=== PATIENT | female | born 1995 | race Caucasian/White ===

== ENCOUNTER 2021-05-11 11:51 | Emergency (ER) | payer OTHER, SELFPAY ==
[2021-05-11 12:02] VITALS: BP 120/66; PULSE 71; RESP 16; TEMP 36.7; O2SAT 100
--- NOTE | 2021-05-11 12:47 | ED.ABDPAIN ---
HPI - Abdominal Pain General Chief Complaint: Abdominal Pain Stated Complaint: Abdominal Pain Time Seen by Provider: 05/11/21 12:45 Source: patient, RN notes reviewed and old records reviewed Mode of arrival: ambulatory Limitations: no limitations Related Data Allergies Allergy/AdvReac Type Severity Reaction Status Date / Time No Known Allergies Allergy Unverified 04/18/18 12:58 Review of Systems Review of Systems: CONSTITUTIONAL: Denies fever, chills, or sweats. EYES: Denies visual changes, redness, or discharge. ENT: Denies rhinorrhea, congestion, sore throat, or otalgia. CARDIOVASCULAR: Denies chest pain, palpitations, or edema. RESPIRATORY: Denies cough or dyspnea. GASTROINTESTINAL: Denies abdominal pain, nausea, vomiting, or diarrhea. GENITOURINARY: Denies dysuria or hematuria. SKIN: Denies rash or itching. MUSCULOSKELETAL: Denies back pain, joint pain, or myalgia. NEUROLOGIC: Denies headache, numbness, or weakness. PSYCHIATRIC: Denies anxiety or depression. All systems reviewed & are unremarkable except as noted in HPI and below PMFSH Surgical History Surgical History (Updated 05/11/21 @ 12:58 by Traci Wilcox NP) Hx of cholecystectomy Comments At time of signature, agree with nursing past medical, surgical, social and family history. There is no relevant family history pertinent to the presenting complaint Exam Narrative: GENERAL: Well-appearing, well-nourished, and in no acute distress. HEAD: Normocephalic, atraumatic. EYES: PERRLA and EOMI. ENT: Nares clear, no rhinorrhea or epistaxis. Mucous membranes moist. NECK: Supple. CHEST: Clear to auscultation. No respiratory distress. HEART: Regular rate and rhythm. No murmur heard. Normal peripheral pulses. ABDOMEN: Soft, nontender, nondistended, normal active bowel sounds. EXTREMITIES: Normal range of motion. No edema. SKIN: Warm, dry, no rash. NEURO: No focal deficits. Alert and oriented x3. Course Vital Signs Vital signs: Vital Signs Temperature 36.7 C 05/11/21 12:02 Pulse Rate 71 05/11/21 12:02 Respiratory Rate 16 05/11/21 12:02 Blood Pressure 120/66 05/11/21 12:02 Pulse Oximetry 100 05/11/21 12:02 Temperature 36.7 C 05/11/21 12:02 Pulse Rate 71 05/11/21 12:02 Respiratory Rate 16 05/11/21 12:02 Blood Pressure 120/66 05/11/21 12:02 Pulse Oximetry 100 05/11/21 12:02 Discharge Plan Discharge Clinical Impression: Abdominal pain, Diarrhea Patient Disposition: Home, Self-Care Condition: Stable Instructions: Irritable Bowel Syndrome (ED), Abdominal Pain (ED) Additional Instructions: Clear liquids for the next 8-10 hours, then advance to a bland diet as tolerated A bland diet can consist of--BRAT diet which is bananas, rice, applesauce, and toast Avoid fried, greasy, fatty, fried foods Avoid caffeine, nicotine, and alcohol Return to your regular diet in the next 3-4 days Bentyl as needed for abdominal cramping Sometimes ibuprofen/Aleve can cause increased stomach upset Cixj-xrh-[id number] Imodium if develop diarrhea Follow-up with her PCP if continued problems or uncontrolled pain Maintain low-fat diet If your symptoms persist, change or worsen significantly before you can contact your personal physician then please, without delay, go to the emergency department for further evaluation. Follow-up with PCP in 7-10 days or sooner if needed Prescriptions: New dicyclomine 20 mg tablet 20 mg PO TID PRN (Reason: abdominal discomfort) Qty: 20 RF: 0 Follow-up/Referrals: PHYSICIAN,CAREER DEVELOPMENT FACILITATOR [Primary Care Provider] - Stand Alone Forms: Work/School Release IP Time of Disposition: 13:05 Quality [place] Coma Scale Eyes: Open Verbal: Oriented and Alert Motor: Follows Commands [place] Coma Total Score: 15
--- NOTE | 2021-05-11 12:57 | ED.ABDPAIN ---
HPI - Abdominal Pain General Chief Complaint: Abdominal Pain Stated Complaint: Abdominal Pain Time Seen by Provider: 05/11/21 12:45 Source: patient, RN notes reviewed and old records reviewed Mode of arrival: ambulatory Limitations: no limitations History of Present Illness HPI narrative: 25 year old female who presents to [facility] care with complaints of abdominal discomfort in mid abdominal area with cramping sensation and frequent diarrhea since last night. Patient states that she thinks she has undiagnosed IBS and any time she has change in diet she seems to have diarrhea and abdominal symptoms. Patient states that she ate some greasy meat last night and has had 6 diarrhea stools with last stool this morning at 1000, no fevers or any vomiting. MD elicited complaint: abdominal pain and other (diarrhea) Pertinent past history: other (gall bladder removed) Onset (ago): day(s) (1) Related Data Allergies Allergy/AdvReac Type Severity Reaction Status Date / Time No Known Allergies Allergy Unverified 04/18/18 12:58 Review of Systems Review of Systems: CONSTITUTIONAL: Denies fever, chills, or sweats. EYES: Denies visual changes, redness, or discharge. ENT: Denies rhinorrhea, congestion, sore throat, or otalgia. CARDIOVASCULAR: Denies chest pain, palpitations, or edema. RESPIRATORY: Denies cough or dyspnea. GASTROINTESTINAL: Positive for mid abdominal pain with cramping, no nausea, vomiting, positive for diarrhea. GENITOURINARY: Denies dysuria or hematuria. SKIN: Denies rash or itching. MUSCULOSKELETAL: Denies back pain, joint pain, or myalgia. NEUROLOGIC: Denies headache, numbness, or weakness. PSYCHIATRIC: Denies anxiety or depression. All systems reviewed & are unremarkable except as noted in HPI and below PMFSH Past Medical History Medical History (Updated 05/12/21 @ 20:47 by Traci Wilcox NP) Anxiety and depression GERD (gastroesophageal reflux disease) Surgical History Surgical History (Updated 05/12/21 @ 20:46 by Traci Wilcox NP) Hx of cholecystectomy Status post right foot surgery fracture Social History Social History (Updated 05/12/21 @ 20:48 by Traci Wilcox NP) Smoking packs per day: 0.5 Smoking cigarettes per day: 10.0 Years smoked: 8 Smoking pack-years: 4.00 Smoking status: Current every day smoker Alcohol intake: unknown Substance use: unknown Living arrangements: with family Gender identity (if verbalized by the patient): Female Comments At time of signature, agree with nursing past medical, surgical, social and family history. There is no relevant family history pertinent to the presenting complaint Exam Narrative: GENERAL: Well-appearing, well-nourished, and in no acute distress. HEAD: Normocephalic, atraumatic. EYES: PERRLA and EOMI. ENT: Nares clear, no rhinorrhea or epistaxis. Mucous membranes moist.TM's normal with good light reflex, throat pink with no lesions or exudates,no tonsil nlargement NECK: Supple.no lymphadenopathy CHEST: Clear to auscultation. No respiratory distress.SAO2 100% on room air HEART: Regular rate and rhythm. No murmur heard. Normal peripheral pulses. ABDOMEN: Soft, tender around middle area of abdomen with no McBurney point tenderness, nondistended, normal active bowel sounds.diarrhea and cramping EXTREMITIES: Normal range of motion. No edema. SKIN: Warm, dry, no rash. NEURO: No focal deficits. Alert and oriented x3. Course Vital Signs Vital signs: Vital Signs Temperature 36.7 C 05/11/21 12:02 Pulse Rate 71 05/11/21 12:02 Respiratory Rate 16 05/11/21 12:02 Blood Pressure 120/66 05/11/21 12:02 Pulse Oximetry 100 05/11/21 12:02 Temperature 36.7 C 05/11/21 12:02 Pulse Rate 71 05/11/21 12:02 Respiratory Rate 16 05/11/21 12:02 Blood Pressure 120/66 05/11/21 12:02 Pulse Oximetry 100 05/11/21 12:02 MDM - Abdominal Pain Differential Diagnosis Differential diagnosis: Likely abdominal pain and ot
== END 2021-05-11 13:07 | disposition home or self-care (01) ==
PROVIDERS: Emergency Provider Registered Nurse
DX: R10.9 Unspecified abdominal pain (principal); R19.7 Diarrhea, unspecified; F17.210 Nicotine dependence, cigarettes, uncomplicated
CPT/HCPCS: 99203; G0463

== ENCOUNTER 2023-08-21 05:05 | Inpatient (IN) | payer OTHER, SELFPAY ==
[2023-08-21] VITALS (120 sets, daily range): BP systolic 84–135; BP diastolic 24–105; PULSE 40–202; TEMP 36.1–36.6; O2SAT 91–100; BMI 33.8
[2023-08-21 05:53] LABS: Basophils Percent Auto 0.3 % (0.2-1.2); Eosinophils Absolute Auto 0.1 K/mm3 (0-0.3); Eosinophils Percent Auto 0.9 % (0-4.4); Hematocrit 32.8 % (37.0-47.0); Hemoglobin 11.7 g/dL (12.0-15.0); Immature Granulocyte Absolute 0.04 K/mm3 (0.00-0.031); Immature Granulocyte Percent A 0.4 % (0-0.5); Lymphocytes Absolute Auto 2.77 K/mm3 (0.9-3.2); Lymphocytes Percent Auto 30.9 % (18.3-44.2); Mean Corpuscular HGB Conc 35.7 g/dl (32-36); Mean Corpuscular Hemoglobin 34.3 pg (26-34); Mean Corpuscular Volume 96.2 fl (80-100); Mean Platelet Volume 10.5 fl (7.4-10.4); Monocytes Absolute Auto 0.4 K/mm3 (0.1-0.6); Monocytes Percent Auto 4.9 % (2.6-8.5); Neutrophils Absolute Auto 5.6 K/mm3 (1.3-6.7); Neutrophils Percent Auto 62.6 % (45.5-73.1); Platelet Count Result 205 k/mm3 (150-375); Red Blood Count 3.41 M/mm3 (4.2-5.4)
[2023-08-21] MEDS: miSOPROStol 25 MCG TABLET 50 MCG PO (06:31)
--- NOTE | 2023-08-21 06:38 | WPDANESEPP ---
Anes - Eval Pre Procedure Procedure: labor epidural Date/Time: 08/21/23 06:38 Surgeon: elaine Preop Diagnosis: pain during labor Pre Op Diagnosis: IOL Patient Data Age: 28 Gender: F Height: Weight: Allergies Allergy/AdvReac Type Severity Reaction Status Date / Time No Known Allergies Allergy Unverified 04/18/18 12:58 Home Medications Medication Instructions Recorded Confirmed Type dicyclomine 20 mg tablet 20 mg PO TID PRN abdominal 05/11/21 Rx discomfort #20 tabs prenat.vits,beckie,[id number] tablet 08/01/23 History Laboratory Tests 08/21/23 05:31 WBC 9.0 K/mm3 (4.5-10.0) RBC 3.41 L M/mm3 (4.2-5.4) Hgb 11.7 L g/dL (12.0-15.0) Hct 32.8 L % (37.0-47.0) MCV 96.2 fl (80-100) MCH 34.3 H pg (26-34) MCHC 35.7 g/dl (32-36) RDW 13.0 % (11.5-14.5) Plt Count 205 k/mm3 (150-375) MPV 10.5 H fl (7.4-10.4) Immature Gran % (Auto) 0.4 % (0-0.5) Neut % (Auto) 62.6 % (45.5-73.1) Lymph % (Auto) 30.9 % (18.3-44.2) [place] % (Auto) 4.9 % (2.6-8.5) Eos % (Auto) 0.9 % (0-4.4) Baso % (Auto) 0.3 % (0.2-1.2) Lymph # (Auto) 2.77 K/mm3 (0.9-3.2) [place] # (Auto) 0.4 K/mm3 (0.1-0.6) Eos # (Auto) 0.1 K/mm3 (0-0.3) Baso # (Auto) 0.0 K/mm3 (0.0-0.1) Abs Immat Gran (auto) 0.04 H K/mm3 (0.00-0.031) Absolute Neuts (auto) 5.6 K/mm3 (1.3-6.7) Absolute Nucleated RBC 0.0 K/mm3 (0.0-0.012) Nucleated RBC % 0.0 % (0.0-0.2) RPR Pending Blood Type Pending Antibody Screen Pending Patient hx anesthesia problems: none Family hx anesthesia problems: none Results Review: All pre-operative results and documents have been reviewed as part of the pre-operative evaluation. [facility] Past Medical History Medical History (Updated 08/21/23 @ 06:39 by April Streeter CRNA) Anxiety and depression GERD (gastroesophageal reflux disease) IUP (intrauterine ), incidental Surgical History Surgical History (Updated 05/12/21 @ 20:46 by Traci Wilcox NP) Hx of cholecystectomy Status post right foot surgery fracture Family History Family History (Updated 08/01/23 @ 12:41 by Kiana Celis RN) Grandparent Diabetes mellitus Mother Hypertension Social History Social History (Updated 05/12/21 @ 20:48 by Traci Wilcox NP) Smoking packs per day: 0.5 Smoking cigarettes per day: 10.0 Years smoked: 8 Smoking pack-years: 4.00 Smoking status: Current every day smoker Alcohol intake: unknown Substance use: never Living arrangements: with family Gender identity (if verbalized by the patient): Female Spiritual care concerns: No Exam Day of Procedure 08/21/23 06:38
--- NOTE | 2023-08-21 07:24 | LDADM ---
This patient, Trinity Gardner, was admitted to Labor/Delivery/Recovery 108 on 08/21/23 at 05:05. Plans for labor, pain management and were discussed with patient. Patient/family oriented to hospital policies and general routines including ID bracelet, bed and alarms, visiting hours, pain management, procedures, bathroom and other care routines, personal items, smoking policy, room service/diet and guest tray routines, security routines, and visiting hours. Patient/Family are encouraged to report perceived risks to care and to ask questions if they do not understand what they are told or what they should do. See OBIX for further documentation.
--- NOTE | 2023-08-21 09:14 | PM.IMHP ---
H&P: HPI History of Present Illness Date/Time: 08/21/23 09:14 Chief Complaint: EIL Narrative: Jose Raul is a 28 year old who presents for elective induction of labor. has been complicated by bilateral club feet, evaluated by MFM. Plan for ortho evaluation. Otherwise, uncomplicated . Reports mild contractions, no LOF or vb. Good movement. Review of Systems Review of Systems: All systems reviewed & are unremarkable except as noted in HPI and below PMFSH Past Medical History Medical History Anxiety and depression GERD (gastroesophageal reflux disease) IUP (intrauterine ), incidental Surgical History Surgical History Hx of cholecystectomy Status post right foot surgery fracture Family History Family History Grandparent Diabetes mellitus Mother Hypertension Social History Social History Smoking packs per day: 0.5 Smoking cigarettes per day: 10.0 Years smoked: 8 Smoking pack-years: 4.00 Smoking status: Current every day smoker Tobacco type: e-cigarettes/vaping Alcohol intake: unknown Substance use: never Do You Feel Safe in your Home?: Yes Lack of Transportation: No Lack of Food: Never True Current Housing: I Have Housing Concerned About Future Housing: No Difficulty Paying Gas/Electric Bills: No Difficulty Paying for Meds: No Currently Unemployed: YES Education: High School Diploma/GED Difficulty w/ Childcare or Family Care: No Living arrangements: with family Gender identity (if verbalized by the patient): Female Spiritual care concerns: No Meds Home Medications and Allergies Home Medications Medication Instructions Recorded Confirmed Type dicyclomine 20 mg tablet 20 mg PO TID PRN abdominal 05/11/21 Rx discomfort #20 tabs prenat.vits,beckie,yfh-lmhd-xdmhe 1 tablet 08/01/23 History Allergies Allergy/AdvReac Type Severity Reaction Status Date / Time No Known Allergies Allergy Unverified 04/18/18 12:58 Vital Signs Vital Signs - 24 hr 08/21/23 06:39 08/21/23 07:00 08/21/23 07:30 Temperature Pulse Rate 57 L 60 58 L Blood Pressure 100/63 100/59 L 93/43 L Oxygen Delivery 08/21/23 08:00 08/21/23 08:30 08/21/23 09:00 Temperature 97.2 F L Pulse Rate 64 61 63 Blood Pressure 109/57 L 97/55 L 94/50 L Oxygen Delivery 08/21/23 07:22 Temperature Pulse Rate Blood Pressure Oxygen Delivery Room Air Exam Const: General: comfortable and no acute distress HENMT: Mouth: Yes moist mucous membranes Resp: Effort & Inspection: normal respiratory effort Cardio: Rate: regular rate Extrem: General: normal to inspection Psych: Mental Status: mental status grossly normal H&P: Results Labs Labs: Short CBC 08/21/23 Range/Units 05:31 WBC 9.0 (4.5-10.0) K/mm3 Hgb 11.7 L (12.0-15.0) g/dL Hct 32.8 L (37.0-47.0) % Plt Count 205 (150-375) k/mm3 Assessment and Plan Assessment and plan (1) Encounter for elective induction of labor: Code(s): Z34.90 - Encounter for supervision of normal , unspecified, unspecified trimester Status: Acute Assessment and Plan: - VSS, afebrile - s/p cytotec x1 at 0630 - FHR category I - continue current plan (2) Club foot, , affecting care of mother, antepartum: Code(s): O35.HXX0 - Maternal care for other (suspected) abnormality and damage, lower extremities anomalies, not applicable or unspecified Status: Acute
[2023-08-21 09:50] LABS: Rapid Plasma Reagin Non-Reactive (NonReactive)
[2023-08-21] MEDS: LACTATED RINGERS 1,000 ML 125 ML IV CONT ×2 (11:40→22:15)
[2023-08-21] MEDS: OXYTOCIN 30 UNITS/NS 500 ML 30 UNITS/500 ML BAG IV CONT (11:41)
--- NOTE | 2023-08-21 14:29 | PM.OBPNLAB ---
Pain Control Date/time seen: 08/21/23 14:29 Comments: Patient reports increasing pain with contractions. Tolerating well. Pelvic Exam Dilation (cm): 3 Effacement (%): 60 station: -2 Amniotic membrane status: Ruptured Comments: AROM at 1415 of clear fluid Contractions Monitor mode: External Contraction frequency: 4 Contraction intensity: Moderate Status status: Category l Assessment and Plan Assessment: induction ongoing Plan: continuous present management
[2023-08-21] MEDS: SODIUM CHLORIDE 0.9% IV 300 ML 600 ML I-UTERINE (18:46)
--- NOTE | 2023-08-21 21:59 | PM.OBPRVD ---
OB - Vaginal Delivery Note Procedure Delivery date: 08/21/23 Events: Elective Induction of Labor Induction method: Per Misoprostol Protocol Delivery augmentation: Rupture of Membranes and Pitocin Delivery monitor: External FHT and Internal Uterine Route of delivery: Episiotomy description: None Laceration Description: None Specimen: No Quantitative Blood Loss (ml): 50 Anesthesia type: Epidural Disposition: Floor Complications: No immediate complications Narrative: See H&P and notes for details on patient's admission and labor. She progressed to complete cervical dilation and at the appropriate time began pushing. With adequate expulsive efforts by the mother, the baby's head was delivered without difficulty. Nuchal cord was not present. The baby's left shoulder was anterior and delivered under the pubic symphysis without difficulty. The posterior shoulder and the rest of the baby delivered without difficulty. The umbilical cord was doubly clamped and cut after 60 seconds of delayed cord clamping. Care of the infant was then assumed by the nursing staff. Mother and are at this time in stable condition and doing well. Baby Date of : 08/21/23 Weeks of gestation at delivery: 39 Infant gender: Female presentation: vertex position: Left Occiput Anterior Placenta delivery description: Expressed Cord Vessel Description: 3 Vessels Narrative: bilateral club feet noted at time of delivery
[2023-08-21] MEDS: OXYTOCIN 30 UNITS/NS 500 ML 30 UNITS/500 ML BAG 999 UNITS IV CONT (22:00)
[2023-08-21] MEDS: OXYTOCIN 30 UNITS/NS 500 ML 30 UNITS/500 ML BAG 125 UNITS IV CONT (22:14)
[2023-08-21] MEDS: COSYNTROPIN 0.25 MG/ML VIAL 1 MG IV PUSH (22:54)
[2023-08-22] VITALS (8 sets, daily range): BP systolic 103–116; BP diastolic 47–69; PULSE 45–79; RESP 16; TEMP 36.6–37.1; O2SAT 97–99
[2023-08-22 04:51] LABS: Hematocrit 32.1 % (37.0-47.0); Hemoglobin 11.2 g/dL (12.0-15.0)
--- NOTE | 2023-08-22 04:57 | PM.OBPNVD ---
OB - PN: Subj Subjective Date/time seen: 08/22/23 04:57 Interval history: PPD#1 Doing well, pain well controlled Eating and drinking without issue Voiding without issue , baby latching well OB - PN: Obj Data Labs 08/21/23 05:31 Labs: Laboratory Results - last 24 hr 08/21/23 05:31 WBC 9.0 RBC 3.41 L Hgb 11.7 L Hct 32.8 L MCV 96.2 MCH 34.3 H MCHC 35.7 RDW 13.0 Plt Count 205 MPV 10.5 H Immature Gran % (Auto) 0.4 Neut % (Auto) 62.6 Lymph % (Auto) 30.9 [place] % (Auto) 4.9 Eos % (Auto) 0.9 Baso % (Auto) 0.3 Lymph # (Auto) 2.77 [place] # (Auto) 0.4 Eos # (Auto) 0.1 Baso # (Auto) 0.0 Abs Immat Gran (auto) 0.04 H Absolute Neuts (auto) 5.6 Absolute Nucleated RBC 0.0 Nucleated RBC % 0.0 RPR Non-reactive Blood Type O Positive Antibody Screen Negative OB - PN A/P Plan day: 1 Plan: routine care Time Spent With Patient Time: Total time spent is greater than 50% in coordination of care (as documented) at patient's floor/unit and/or counseling patient: Review of Systems Review of Systems: All systems reviewed & are unremarkable except as noted in HPI and below Exam Const: General: comfortable and no acute distress HENMT: Mouth: Yes moist mucous membranes Resp: Effort & Inspection: normal respiratory effort Cardio: Rate: regular rate Extrem: General: normal to inspection Psych: Mental Status: mental status grossly normal
--- NOTE | 2023-08-22 08:57 | WPDANLDPN2 ---
Anes-Prog Note L&D Date/Time: 08/22/23 08:57 Comfortable throughout: labor and delivery Neuraxial method: epidural Epidural/Spinal procedure site: clean & non-tender Neuro status: Neuro function grossly intact. Cardiovascular status: normal Respiratory status: normal Airway patency: baseline Mental status: baseline Post-Op hydration status: normal Vital Signs: Last Vital Signs Temp 36.6 C 08/22/23 02:57 Pulse 58 L 08/22/23 02:57 Resp 16 08/22/23 02:57 BP 106/65 08/22/23 02:57 Pulse Ox 97 08/22/23 02:57 O2 Del Method Room Air 08/21/23 07:22 Pain score (VAS): 0/10 I/O: Intake & Output 08/21/23 08/22/23 08/22/23 23:59 07:59 15:59 Intake Total 1000 Balance 1000 Post-procedural complaints: none Patient feedback: Patient satisfied with anesthetic care.
--- NOTE | 2023-08-22 09:00 | PC.NURSE ---
PT introductions made and plan of care discussed per post , pain management, breast feeding, daily care activities . PT and fob both recipients of such instructions and no barriers to learning identified at this time. PT received such instructions per one to one discussion, mom baby care guide and demonstrations. this shift. PT verbalized understanding of such care.
[2023-08-22] MEDS: ACETAMINOPHEN 325 MG TABLET 650 MG PO ×2 (10:15→16:24)
[2023-08-22] MEDS: DOCUSATE SODIUM 100 MG CAPSULE PO ×2 (10:16→16:24)
[2023-08-22] MEDS: IBUPROFEN 600 MG TABLET PO ×2 (10:16→16:24)
[2023-08-22] MEDS: MULTIVIT/MIN/PREN/FOL AC/IRON TABLET 1 TAB PO (10:17)
--- NOTE | 2023-08-22 12:07 | PC.NURSE ---
[id number] Introductions were made, then consulted with patient to assess needs related to . Discussed with mother her?plans to feed?her infant, the?experience so far with this infant latching better than the first. Mother shared that she is independently this without pain. Reminded mother of the stage of bringing infant close to her body, [id number], latching with a big, wide, open mouth to protect her nipples. Resources provided for inpatient services with name written on the communication board. Mother voiced understanding of information and will call if there is a request for assistance. Reported to the Primary RN.
[2023-08-23 07:30] VITALS: BP 117/81; PULSE 64; RESP 18; TEMP 36.5; O2SAT 100
--- NOTE | 2023-08-23 08:26 | PM.OBPNVD ---
OB - PN: Subj Subjective Date/time seen: 08/23/23 08:26 Interval history: PPD#2 Doing well, pain well controlled Eating and drinking without issue Voiding without issue , baby latching well Patient comments: no complaints, pain well controlled and tolerating diet OB - PN: Obj Data Labs 08/22/23 04:36 OB - PN A/P Plan day: 2 Plan: routine care and discharge home Time Spent With Patient Time: Total time spent is greater than 50% in coordination of care (as documented) at patient's floor/unit and/or counseling patient: Exam Const: General: comfortable and no acute distress Resp: Effort & Inspection: normal respiratory effort Auscultation: no rales, no rhonchi and no wheezes Cardio: Rate: regular rate Heart sounds: no click, no murmurs and no rubs GI: GI Palp: Yes Soft to palpation and No Tenderness to palpation present (GI) Auscultation: normal bowel sounds Extrem: General: normal to inspection, no pedal edema and no calf tenderness
--- NOTE | 2023-08-23 08:27 | PM.OBDSVD ---
DS: Admitting Diagnosis Discharge Date August 23, 2023 Admitting Diagnosis term DS: Discharge Diagnosis Discharge Diagnosis (1) Post term , delivered: Code(s): O48.0 - Post-term Status: Acute OB - DS: Summary OB Procedures : None OB Procedures Intrapartum: Spontaneous Vag Delivery OB Procedures: : None Peripartum Data Laceration Description: None Episiotomy description: None Time Spent with Patient Time attestation: Total time spent providing and/or coordinating discharge services: Discharge Plan Discharge Discharging Clinician: Bulmaro Hubbard Patient Disposition: Home, Self-Care Activity: pelvic rest Diet: regular Patient Instructions: Antibiotic Form, How to Stop Smoking (DC) Stand Alone Forms: General Discharge Information Follow-up/Referrals: Bulmaro Hubbard MD [Physician] - Discharge Medications: No Action dicyclomine 20 mg tablet 20 mg PO TID PRN (Reason: abdominal discomfort) Qty: 20 0RF #2 Tablet 1 tablet Date of admission: 08/21/23 05:05 Primary Care Provider: PHYSICIAN,THROW OUT CLERK Admitting Provider: Joshua Henderson Attending physician on admission: Joshua Henderson Condition: Stable
[2023-08-23] MEDS: IBUPROFEN 600 MG TABLET PO (08:44)
[2023-08-23] MEDS: MULTIVIT/MIN/PREN/FOL AC/IRON TABLET 1 TAB PO (08:44)
[2023-08-23] MEDS: DOCUSATE SODIUM 100 MG CAPSULE PO (08:45)
== END 2023-08-23 12:11 | disposition home or self-care (01) | DRG 560 ==
LOC: ANHLDR 09:11 → ANHOB2 08-23 08:28 → ANHLDR 08-24 09:16 → ANHOB2 08-24 09:16
PROVIDERS: Admitting Provider Obstetrics & Gynecology; Visit Provider Obstetrics & Gynecology
DX: O35.HXX0 Maternal care for other (suspected) fetal abnormality and damage, fetal lower extremities anomalies, not applicable or unspecified (principal); O99.334 Smoking (tobacco) complicating childbirth; F17.290 Nicotine dependence, other tobacco product, uncomplicated; Z3A.39 39 weeks gestation of pregnancy; Z37.0 Single live birth
CPT/HCPCS: 36415; 85014; 85018; 85025; 86592; 86850; 86900; 86901; A9270; J0834; J2590; J2795; J7030; J7120

== ENCOUNTER 2023-08-24 19:31 | Emergency (ER) | payer OTHER, SELFPAY ==
[2023-08-24 19:35] VITALS: BP 132/44; PULSE 88; RESP 16; TEMP 38.1; O2SAT 100
--- NOTE | 2023-08-24 19:47 | ED.FEVER ---
HPI - Fever General Chief Complaint: Fever Stated Complaint: Fever Source: patient Mode of arrival: ambulatory Limitations: no limitations History of Present Illness HPI Narrative: 28-year-old 3 day female presented for complaint of fever up to almost 102 just prior to arrival. She endorses fatigue today. Denies chest pain, breast pain/redness, shortness of breath, abdominal pain, excessive vaginal bleeding, nausea vomiting, diarrhea. Endorses uncomplicated vaginal delivery with epidural. 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 ENT: Denies rhinorrhea, congestion, sore throat, or otalgia. CARDIOVASCULAR: Denies chest pain, palpitations, or edema. RESPIRATORY: Denies cough or dyspnea. GASTROINTESTINAL: Denies abdominal pain, nausea, vomiting, or diarrhea. GENITOURINARY: Denies vaginal bleeding, dysuria or hematuria. SKIN: Denies rash, itching, or wounds. MUSCULOSKELETAL: Denies back pain, joint pain, or myalgia. NEUROLOGIC: Denies headache, numbness, tingling, or weakness. All systems reviewed & are unremarkable except as noted in HPI and below PMFSH Past Medical History Medical History Anxiety and depression GERD (gastroesophageal reflux disease) IUP (intrauterine ), incidental Surgical History Surgical History Hx of cholecystectomy Status post right foot surgery fracture Family History Family History Grandparent Diabetes mellitus Mother Hypertension Social History Social History Smoking packs per day: 0.5 Smoking cigarettes per day: 10.0 Years smoked: 8 Smoking pack-years: 4.00 Smoking status: Current every day smoker Tobacco type: e-cigarettes/vaping Alcohol intake: unknown Substance use: never Do You Feel Safe in your Home?: Yes Lack of Transportation: No Lack of Food: Never True Current Housing: I Have Housing Concerned About Future Housing: No Difficulty Paying Gas/Electric Bills: No Difficulty Paying for Meds: No Currently Unemployed: YES Education: High School Diploma/GED Difficulty w/ Childcare or Family Care: No Living arrangements: with family Gender identity (if verbalized by the patient): Female Spiritual care concerns: No Comments At time of signature, I have reviewed and agree with nursing past medical, surgical, social and family history unless otherwise noted. Please see nursing chart for further information. There is no relevant family history pertinent to the presenting complaint Exam Narrative: GENERAL: Well-appearing, well-nourished, and in no acute distress. EYES: EOMI. No redness or drainage. Conjunctivae normal. ENT: Mucous membranes pink and moist. No rhinorrhea. CHEST: No respiratory distress. Clear to auscultation. HEART: Regular rate and rhythm. No murmur appreciated. Normal peripheral pulses. ABDOMEN: Soft, nontender, nondistended, normal active bowel sounds. SKIN: Warm, dry, no rash. Capillary refill normal. Normal skin turgor. NEURO: No focal deficits. Alert and oriented x3. Gait steady. PSYCH: Normal affect. Course Course Emergency Course: Patient is aware of diagnosis, understands and agrees to treatment plan. Anticipatory guidance given. Patient agrees to follow-up as directed and is aware of reasons to seek care at the emergency department. Portions of this record may have been created with voice recogn
== END 2023-08-24 19:56 | disposition short-term general hospital (02) ==
PROVIDERS: Emergency Provider Nurse Practitioner Family; PCP Obstetrics & Gynecology
DX: O86.4 Pyrexia of unknown origin following delivery (principal); F17.210 Nicotine dependence, cigarettes, uncomplicated
CPT/HCPCS: 99212; G0463